=== PATIENT | female | born 1970 | race Caucasian/White ===

== ENCOUNTER 2024-07-21 11:27 | Observation (INO) ==
--- NOTE | 2024-07-21 11:50 | Emergency Department Note ---
HPI - General Adult General Chief complaint: Arrhythmia/Palpitations Stated complaint: dizziness, palpitations x 2 days Time Seen by Provider: 07/21/24 11:38 Source: patient Mode of arrival: walk-in Limitations: no limitations History of Present Illness HPI narrative: This is a 53 year old female patient that presents to the ER with c/o feeling her heart beat fast and feeling numbness and tingling all over and then feeling like she is going to pass out. Patient denies any chest pain, SOB, back pain, abdominal pain, fever, chills, or N/V. Patient is on Adderall Associated symptoms: Reports weakness Treatments prior to arrival: Reports none Related Data Allergies Allergy/AdvReac Type Severity Reaction Status Date / Time No Known Drug Allergies Allergy Verified 07/21/24 11:52 Review of Systems Status of ROS 10 or more systems reviewed and unremark able except as noted in history and below Constitutional Denies: fever, chills, change in weight, fatigue, malaise, night sweats or change in sleep pattern Eyes Denies: change in vision, blurry vision, blind spots, light sensitivity or eye discomfort Ears, nose, mouth, and throat Denies: throat pain, neck pain, throat swelling, difficulty swallowing, hoarseness, mouth pain or swelling of lips/tongue Cardiovascular Reports: palpitations; Denies: chest pain, edema, swelling of feet/ankles, lightheadedness, shortness of breath with exertion, shortness of breath when lying down or leg pain with exertion Respiratory Denies: shortness of breath, cough, wheezing, stridor, pain on inspiration, change in phlegm color or coughing up blood Gastrointestinal Denies: abdominal pain, nausea, vomiting, coffee grounds in vomit, heartburn, diarrhea or constipation Genitourinary Denies: painful urination, urinary frequency, urinary urgency, urinary incontinence, blood in urine or difficulty voiding Musculoskeletal Denies: back pain, neck pain, extremity pain, extremity swelling, joint pain, limited range of motion or joint swelling Integumentary/Breast Denies: rash, itching, redness, skin pain, skin tenderness, skin swelling, sores or new lesion Neurological Reports: dizziness and other (near syncope); Denies: headache, numbness in extremities, weakness in extremities, lack of coordination, vertigo, confusion, behavioral changes, slurred speech, difficulty communicating thoug hts, seizure-like activity or involuntary movements Psychiatric Denies: anxiety, mood swings, panic attacks, change in sleep pattern, hopelessness, loss of interest, irritability, difficulty concentrating, visual hallucinations, auditory hallucinations, tactile hallucinations, suicidal ideation or homicidal ideation Endocrine Denies: excessive urination, excessive thirst, fatigue, cold intolerance or excessive sweating Hematologic/Lymphatic Denies: easy bruising, easy bleeding or enlarged lymph nodes Allergic/Immunologic Denies: hives, throat swelling, tongue swelling, facial swelling, wheezing or itchy eyes PFSH PFS Surgical History (Updated 07/21/24 @ 11:58 by Michelle Andrade RN) Previous section Exam Constitutional: normal general appearance and no apparent distress Vital Signs - 24 hr 07/21/24 11:30 07/21/24 11:30 07/21/24 11:40 Temperature 97.9 F 97.9 F Pulse Rate 107 H 117 H 123 H Respiratory Rate 16 18 Blood Pressure 183/87 178/87 156/76 Pulse Oximetry 99 97 Oxygen Delivery Me thod Room Air Room Air 07/21/24 11:42 07/21/24 11:44 Temperature Pulse Rate 115 H 129 H Respiratory Rate Blood Pressure 163/94 141/79 Pulse Oximetry Oxygen Delivery Me thod HENMT: normocephalic, head/scalp atraumatic, hearing grossly normal bilaterally, EACs normal, nasal mucous membranes normal, external nose normal, oral mucous membranes normal and oropharynx normal Eyes: PERRL, EOMs intact bilaterally, conjunctivae normal and no scleral icterus Neck/C-Spine: visual inspection normal and trachea midline Lymph: no lymphadenopathy noted Chest: inspection of chest normal Respiratory: breath sounds equal bilaterally, normal respiratory effort, clear to auscultation bilaterally, no wheezes, no rales, no retractions, no use of accessory muscles and chest percussion normal Cardiovascular: heart rate abnormal (tachycardic), regular rhythm noted, no gallop, no rub, no murmur, no JVD, no clicks, peripheral pulses 2+ throughout, no bruits noted and no additional abnormal heart sounds Gastrointestinal: abdomen normal to inspection, abdomen soft to palpation, nontender to palpation, nontender to percussion, nondistended, normoactive bowel sounds, no hepatosplenomegaly, no masses, no pulsatile mass, no ascites and no hernia Genitourinary: no CVA tenderness Back/Pelvis: spine normal to inspection Extremities: normal to inspection, normal to palpation, no tenderness, full ROM, no joint enlargement and no deformity Neurology: manager hris II-XII intact, no movement abnormality noted, no focal motor deficit noted, no sensory deficits noted, speech normal, coordination normal, no pronator drift noted, no fasciculations noted and GCS normal Psychiatry: mental status grossly normal, oriented x3, thought process normal, cooperative, affect normal, psychomotor activity normal and memory normal Skin: skin color normal Course Course Hospital Course: 1237: spoke to Dr Fowler and she accepted patient to the medical floor. VSS, no s/s of acute distress noted Vital Signs Vital signs: Vital Signs Temperature 97.9 F 07/21/24 11:30 Pulse Rate 107 H 07/21/24 11:30 Respiratory Rate 16 07/21/24 11:30 Blood Pressure 183/87 07/21/24 11:30 Pulse Oximetry 99 07/21/24 11:30 Oxygen Delivery Method Room Air 07/21/24 11:30 Temperature 97.9 F 07/21/24 11:30 Pulse Rate 129 H 07/21/24 11:44 Respiratory Rate 16 07/21/24 11:30 Blood Pressure 141/79 07/21/24 11:44 Pulse Oximetry 99 07/21/24 11:30 Oxygen Delivery Method Room Air 07/21/24 11:30 Medical Decision Making Differential Diagnosis Differential Diagnosis: viral illness Medical Records Medical records reviewed: Yes I reviewed the patient's medical records Lab Data Lab results reviewed: Yes I reviewed the patient's lab results Labs: Lab Results 07/21/24 Range/Units 11:45 WBC 6.6 (4.3-9.3) K/uL RBC 5.0 (4.00-5.50) M/uL Hgb 14.0 (12.5-15.8) gm/dL Hct 41.7 (35.9-46.7) % MCV 83.8 (81.0-93.7) fl MCH 28.2 (27.6-32.2) pg MCHC 33.7 (33.1-35.3) g/dl RDW 14.3 H (11.4-14.2) % Plt Count 397 H (152-353) K/uL MPV 8.4 (6.9-10.8) fl Gran % 52.4 (47.8-71.3) % Lymph % (Auto) 38.1 (20.0-43.0) % [place] % (Auto) 8.0 (3.6-9.8) % Eos % (Auto) 0.8 (0.4-2.8) % Baso % (Auto) 0.7 (0.1-0.85) Lymph # (Auto) 2.5 (1.1-3.1) [place] # (Auto) 0.5 L (1.1-3.1) Eos # (Auto) 0.1 (0.0-0.2) Baso # (Auto) 0.0 (0.0-0.1) Absolute Gran (auto) 3.5 (2.3-6.0) D-Dimer <100 L (100-600) ng/mL Sodium 135 L (136-145) mmol/L Potassium 2.9 L (3.6-5.2) mmol/L Chloride 99.0 (98-107) mmol/L Carbon Dioxide 26 (21-32) mmol/L Anion Gap 10.0 (4-14) mEq/L BUN 8 (7-18) mg/dL Creatinine 0.9 (0.6-1.3) mg/dL Estimated GFR 77.4 (>59.9) Glucose 94 (70-110) mg/dL Calcium 8.4 L (8.5-10.1) mg/dL Total Bilirubin 0.40 (0.0-1.0) mg/dL AST 9 L (15-37) U/L ALT 17 L (30-65) U/L Alkaline Phosphatase 82 (50-136) U/L Total Creatine Kinase 60 (26-192) U/L Troponin I High Sens 12.30 (4.0-60.4) ng/L Total Protein 7.8 (6.4-8.2) g/dL Albumin 4.0 (3.4-5.0) g/dL Imaging Data CT scan - head: Attestation: I have reviewed the pertinent imaging results. ECG Data Attestation: I have reviewed the pertinent ECG results. Discharge Plan Discharge Patient Disposition: Admitted As Observation Condition: Stable Clinical Impression: Palpitations, Acute hypokalemia, Near syncope, Orthostatic hypotension Time of Disposition: 12:39
[2024-07-21 11:53] LABS: Basophils%(Percent) Auto 0.7 (0.1-0.85); Eosinophils#(Absolute)Auto 0.1 (0.0-0.2); Eosinophils%(Percent) Auto 0.8 % (0.4-2.8); Granulocytes % - Auto 52.4 % (47.8-71.3); Granulocytes#(Absolute)- Auto 3.5 (2.3-6.0); Hematocrit 41.7 % (35.9-46.7); Mean Corpuscular Volume 83.8 fl (81.0-93.7); Monocytes #(Absolute)- Auto 0.5 (1.1-3.1); Platelet Count 397 K/uL (152-353); White Blood Count 6.6 K/uL (4.3-9.3)
[2024-07-21] MEDS: 0.9 % SODIUM CHLORIDE 1000 ML 1,000 ML IV STA (12:00)
[2024-07-21] MEDS ORDERED: 0.9 % SODIUM CHLORIDE 1000 ML 1,000 ML IV ONE (12:02)
[2024-07-21 12:04] LABS: Potassium 2.9 mmol/L (3.6-5.2)
[2024-07-21] MEDS ORDERED: POTASSIUM CHLORIDE IN WATER 20 MEQ/200 ML PIGGYBACK IV ONE (12:38)
[2024-07-21] MEDS ORDERED: POTASSIUM CHLORIDE 20 MEQ TAB.ER.PRT PO ONE (12:39)
[2024-07-21] MEDS: POTASSIUM CHLORIDE IN WATER 10 MEQ/100 ML PIGGYBACK IV ONE ×2 (12:40→14:05)
[2024-07-21] MEDS: POTASSIUM CHLORIDE 20 MEQ TAB.ER.PRT PO ONE (12:40)
[2024-07-21] MEDS ORDERED: MAGNESIUM, ALUMINUM HYDROXIDE 30 ML ORAL.SUSP PO PRN (14:09)
[2024-07-21] MEDS ORDERED: bisacodyL 10 MG SUPP.RECT PR PRN (14:09)
--- NOTE | 2024-07-21 15:48 | History & Physical Report ---
H&P: HPI History of Present Illness Chief complaint: Near Syncope, hypokalemia, orthostatic hypotension Narrative: This is a 53 year old female patient that presents to the ER with c/o feeling her heart beat fast and feeling numbness and tingling all over which resolved in 20 minutes and left arm still heavy and then feeling like she is going to pass out and . Patient denies any chest pain, SOB, back pain, abdominal pain, fever, chills, or N/V. Patient is on Adderall. Review of Systems Status of ROS 10 or more systems reviewed and unremark able except as noted in history and below Constitutional Denies: fever, chills, change in weight, fatigue, malaise, night sweats or change in sleep pattern Eyes Denies: change in vision, blurry vision, blind spots, light sensitivity or eye discomfort Ears, nose, mouth, and throat Denies: throat pain, neck pain, throat swelling, difficulty swallowing, hoarseness, mouth pain, swelling of lips/tongue or vertigo Cardiovascular Reports: palpitations; Denies: chest pain, edema, swelling of feet/ankles, lightheadedness, shortness of breath with exertion, shortness of breath when lying down or leg pain with exertion Respiratory Denies: shortness of breath, cough, wheezing, stridor, pain on inspiration, change in phlegm color or coughing up blood Gastrointestinal Denies: abdominal pain, nausea, vomiting, coffee grounds in vomit, heartburn, diarrhea, constipation or difficulty swallowing Genitourinary Denies: painful urination, urinary frequency, urinary urgency, urinary incontinence, blood in urine or difficulty voiding Musculoskeletal Denies: back pain, neck pain, extremity pain, extremity swelling, joint pain, limited range of motion or joint swelling Integumentary/Breast Denies: rash, itching, redness, skin pain, skin tenderness, skin swelling, sores or new lesion Neurological Reports: dizziness and other (near syncope); Denies: headache, numbness in extremities, weakness in extremities, lack of coordination, vertigo, confusion, behavioral changes, slurred speech, difficulty communicating thoughts, seizure-like activity or involuntary movements Psychiatric Denies: anxiety, mood swings, panic attacks, change in sleep pattern, hopelessness, loss of interest, irritability, difficulty concentrating, visual hallucinations, auditory hallucinations, tactile hallucinations, suicidal ideation or homicidal ideation Endocrine Denies: excessive urination, excessive thirst, fatigue, cold intolerance or excessive sweating Hematologic/Lymphatic Denies: easy bruising, easy bleeding or enlarged lymph nodes Allergic/Immunologic Denies: hives, throat swelling, tongue swelling, facial swelling, wheezing or itchy eyes [facility] Medical History (Updated 07/22/24 @ 09:18 by Giuliana Fowler DO) ADD (attention deficit disorder) without hyperactivity Surgical History Previous section Social History Problems where you live: no known problems Highest level of school completed/degree received: College Do you think of yourself as: straight/heterosexual Gender Identity: female Meds Home Medications and Allergies Allergies Allergy/AdvReac Type Severity Reaction Status Date / Time No Known Drug Allergies Allergy Verified 07/21/24 11:52 Exam Exam: Patient in jara's position. Constitutional: normal general appearance and no apparent distress Vital Signs - 24 hr 07/21/24 11:30 07/21/24 11:40 07/21/24 11:42 Temperature 97.9 F Pulse Rate 107 H 123 H 115 H Respiratory Rate 16 Blood Pressure 183/87 156/76 163/94 Pulse Oximetry [facility] 07/21/24 11:44 07/21/24 11:45 07/21/24 12:00 Temperature 97.9 F Pulse Rate 129 H 117 H 101 H Respiratory Rate 16 17 Blood Pressure 141/79 178/87 147/71 Pulse Oximetry 99 98 [facility] Room Air 07/21/24 12:30 07/21/24 13:30 07/21/24 14:08 Temperature 97.9 F Pulse Rate 88 88 81 Respiratory Rate 16 15 15 Blood Pressure 129/64 139/72 124/69 Pulse Oximetry 98 96 96 [facility] Room Air HENMT: normocephalic, head/scalp atraumatic, hearing grossly normal bilaterally, EACs normal, nasal mucous membranes normal, external nose normal, oral mucous membranes normal and oropharynx normal Eyes: PERRL, EOMs intact bilaterally, conjunctivae normal and no scleral ict erus Neck/C-Spine: visual inspection normal and trachea midline Lymph: no lymphadenopathy noted Chest: inspection of chest normal Respiratory: breath sounds equal bilaterally, normal respiratory effort, clear to auscultation bilaterally, no wheezes, no rales, no retractions, no use of accessory muscles and chest percussion normal Cardiovascular: heart rate abnormal (tachycardic), regular rhythm noted, no gallop, no rub, no murmur, no JVD, no clicks, peripheral pulses 2+ throughout, no bruits noted and no additional abnormal heart sounds Gastrointestinal: abdomen normal to inspection, abdomen soft to palpation, no ntender to palpation, nontender to percussion, nondistended, normoactive bowel sounds, no hepatosplenomegaly, no masses, no pulsatile mass, no ascites and no hernia Genitourinary: no CVA tenderness Back/Pelvis: spine normal to inspection Extremities: normal to inspection, normal to palpation, no tenderness, full ROM, no joint enlargement and no deformity Neurology: citrus fruit colorer II-XII intact, no movement abnormality noted, no focal motor deficit noted, no sensory deficits noted, speech normal, coordination normal, no pronator drift noted, no fasciculations noted and GCS normal Psychiatry: mental status grossly normal, oriented x3, thought process normal, cooperative, affect normal, psychomotor activity normal and memory normal Skin: skin color normal Assessment and Plan Assessment and Plan (1) Hypokalemia: Code(s): E87.6 - Hypokalemia (2) Near syncope: Code(s): R55 - Syncope and collapse (3) Orthostatic hypotension: Code(s): I95.1 - Orthostatic hypotension (4) Palpitations: Code(s): R00.2 - Palpitations (5) ADD (attention deficit disorder) without hyperactivity: Code(s): F98.8 - Other specified behavioral and emotional disorders with onset usually occurring in childhood and adolescence Plan Sodium Chloride 1,000 mls ! 125 mls/hr IV CONT Pantoprazole Sodium 40 mg IVP DAILY Diltiazem Hcl 30 mg PO Q12H Enoxaparin Sodium 40 mg SUBQ DAILY replace electrolytes per protocol cardiac monitoring EKG in the am Cardizem 30 mg po bid Acetaminophen 500 mg PO Q6H PRN Magnesium Hydroxide 30 ml PO DAILY PRN Bisacodyl [address] DAILY PRN Results Labs Labs: CBC 07/21/24 Range/Units 11:45 WBC 6.6 (4.3-9.3) K/uL RBC 5.0 (4.00-5.50) M/uL Hgb 14.0 (12.5-15.8) gm/dL Hct 41.7 (35.9-46.7) % Plt Count 397 H (152-353) K/uL Gran % 52.4 (47.8-71.3) % Lymph % (Auto) 38.1 (20.0-43.0) % [place] % (Auto) 8.0 (3.6-9.8) % Eos % (Auto) 0.8 (0.4-2.8) % Baso % (Auto) 0.7 (0.1-0.85) Lymph # (Auto) 2.5 (1.1-3.1) [place] # (Auto) 0.5 L (1.1-3.1) Eos # (Auto) 0.1 (0.0-0.2) Baso # (Auto) 0.0 (0.0-0.1) Absolute Gran (auto) 3.5 (2.3-6.0) CMP 07/21/24 11:45 Sodium 135 L Potassium 2.9 L Chloride 99.0 Carbon Dioxide 26 BUN 8 Creatinine 0.9 Glucose 94 Calcium 8.4 L Cardiac Enzymes 07/21/24 11:45 Total Creatine Kinase 60 Liver Function 07/21/24 Range/Units 11:45 Total Bilirubin 0.40 (0.0-1.0) mg/dL AST 9 L (15-37) U/L ALT 17 L (30-65) U/L Alkaline Phosphatase 82 (50-136) U/L Albumin 4.0 (3.4-5.0) g/dL Urinalysis negative except few bacteria Pulse Oximetry Attestation: I have reviewed the pertinent pulse oximetry results. ECG Attestation: I have reviewed the pertinent ECG results. Prior ECG tracings: available for review Imaging Imaging ordered: Chest x-ray and CT scan - head Radiologist's impression: XR CHEST 1V Date of Service: 07/21/24 HISTORY: PALPITATIONSPALPITATIONS; COMPARISON: None. FINDINGS: The trachea is midline. The cardiac silhouette is unremarkable. The lungs are clear without focal infiltrate or effusion. The bony thorax is unremarkable. IMPRESSION: No acute cardiopulmonary disease. CT HEAD/BRAIN WO CON Date of Service: 07/21/24 HISTORY: near syncopenear syncope; COMPARISON: None. TECHNIQUE: Contiguous noncontrast axial CT images of the brain. Images are reviewed in the axial imaging plane with reformatted sagittal and coronal images.The above CT scan was done with automated exposure control and the mA and kV was adjusted to obtain quality images according to patient size. FINDINGS: No evidence of acute intracranial hemorrhage, mass effect, or midline shift. Normal nunez-white matter differentiation. Ventricles normal size and shape. Calvarium is intact. IMPRESSION: No acute intracranial process seen.
[2024-07-21] MEDS: 0.9 % SODIUM CHLORIDE 1000 ML 1,000 ML IV SCH (16:40)
[2024-07-21] MEDS: dilTIAZem HCL 30 MG TABLET PO SCH (16:44)
[2024-07-21] MEDS: PANTOPRAZOLE SODIUM 40 MG VIAL IVP SCH (16:44)
[2024-07-21 19:43] LABS: Potassium 4.1 mmol/L (3.6-5.2)
[2024-07-21 19:49] LABS: Urine Appearance CLEAR (CLEAR); Urine Blood 1+ (NEG - TRACE); Urine Color YELLOW (STRAW/YELL.); Urine Urobilinogen Normal (NORMAL)
[2024-07-21 20:00] LABS: Urine Amorphous Sediment Negative (Negative); Urine Yeast Negative (Negative)
[2024-07-21] MEDS: ACETAMINOPHEN 500 MG TABLET PO PRN (20:00)
[2024-07-21 20:03] LABS: Amphetamine Screen Urine POS. (NEGATIVE); Cannabinoid Screen Urine NEG. (NEGATIVE); Cocaine Screen Urine NEG. (NEGATIVE); Methadone Screen Urine NEG. (NEGATIVE); Opiate Screen Urine NEG. (NEGATIVE)
[2024-07-22 06:56] LABS: Basophils #(Absolute) Auto 0.1 (0.0-0.1); Basophils%(Percent) Auto 0.9 (0.1-0.85); Eosinophils#(Absolute)Auto 0.1 (0.0-0.2); Eosinophils%(Percent) Auto 2.2 % (0.4-2.8); Granulocytes % - Auto 43.9 % (47.8-71.3); Granulocytes#(Absolute)- Auto 2.4 (2.3-6.0); Hematocrit 35.5 % (35.9-46.7); Mean Corpuscular Volume 84.6 fl (81.0-93.7); Monocytes #(Absolute)- Auto 0.5 (1.1-3.1); Monocytes %(Percent)- Auto 8.2 % (3.6-9.8); Platelet Count 320 K/uL (152-353); White Blood Count 5.5 K/uL (4.3-9.3)
[2024-07-22 08:16] VITALS: BP 107/52; PULSE 77; RESP 19; TEMP 97.6
[2024-07-22] MEDS: ENOXAPARIN SODIUM 40 MG/0.4 ML SYRINGE SUBQ SCH (09:39)
[2024-07-22 09:54] LABS: Specific Gravity Urine 1.015 (1.001-1.035); Urine Appearance CLEAR (CLEAR); Urine Blood NEGATIVE (NEG - TRACE); Urine Color YELLOW (STRAW/YELL.); Urine Urobilinogen Normal (NORMAL)
--- NOTE | 2024-07-22 17:09 | Discharge Summary ---
DS: Providers Provider Date of admission: 07/21/24 12:41 Primary care physician: Giuliana Fowler DO Admitting clinician: Gilma Castillo Attending physician on admission: Giuliana Fowler Attending physician on discharge: Giuliana Fowler Discharging clinician: Giuliana Fowler Anticipated date of discharge: 07/22/24 DS: Diagnosis Discharge Diagnosis (1) Hypokalemia: (2) Near syncope: (3) Orthostatic hypotension: (4) Palpitations: (5) ADD (attention deficit disorder) without hyperactivity: Plan Sodium Chloride 1,000 mls @ 125 mls/hr IV CONT Pantoprazole Sodium 40 mg IVP DAILY Diltiazem Hcl 30 mg PO Q12H Enoxaparin Sodium 40 mg SUBQ DAILY Acetaminophen 500 mg PO Q6H PRN Magnesium Hydroxide 30 ml PO DAILY PRN Bisacodul 10 mg HI DAILY PRN Discharge home for self care. DS: Summary Hospital Course Hospital Course: This is a 53 year old female patient that presents to the ER with c/o feeling her heart beat fast and feeling numbness and tingling all over which resolved in 20 minutes and left arm still heavy and then feeling like she is going to pass out and . Patient denies any chest pain, SOB, back pain, abdominal pain, fever, chills, or N/V. Patient is on Adderall. Patient chief complaint this morning of burning sensation when peeing secondary to UTI. Patient symptoms have improved. Cardizem added for rate control and improved BP. Educated patient on increasing water intake and protein intake. Patient is recommended to decrease Adderall usage. Patient is to follow up with PCP in 5-7 days of discharge. Status at Discharge Overall status at discharge: patient is back to baseline Time Spent with Patient Time attestation: Total time spent providing and/or coordinating discharge services: Exam Exam: Patient in low jara's position. Constitutional: normal general appearance, no apparent distress, average body habitus, no limitations and alert Vital Signs - 24 hr 07/21/24 11:30 07/21/24 11:40 07/21/24 11:42 Temperature 97.9 F Pulse Rate 107 H 123 H 115 H Pulse Rate [Bilate ral] Respiratory Rate 16 Blood Pressure 183/87 156/76 163/94 Blood Pressure [Le ft Arm] Pulse Oximetry 99 Oxygen Delivery Me thod Room Air 07/21/24 11:44 07/21/24 11:45 07/21/24 12:00 Temperature 97.9 F Pulse Rate 129 H 117 H 101 H Pulse Rate [Bilate ral] Respiratory Rate 16 17 Blood Pressure 141/79 178/87 147/71 Blood Pressure [Le ft Arm] Pulse Oximetry 99 98 Oxygen Delivery [facility] Room Air Room Air 07/21/24 12:30 07/21/24 13:30 07/21/24 14:08 Temperature 97.9 F Pulse Rate 88 88 81 Pulse Rate [Bilate ral] Respiratory Rate 16 15 15 Blood Pressure 129/64 139/72 124/69 Blood Pressure [Le ft Arm] Pulse Oximetry 98 96 96 Oxygen Delivery [facility] Room Air Room Air 07/21/24 14:20 07/21/24 16:20 07/21/24 16:44 Temperature 97.9 F Pulse Rate 79 Pulse Rate [Bilate ral] Respiratory Rate 19 Blood Pressure 136/67 Blood Pressure [Le ft Arm] 144/68 Pulse Oximetry 100 Oxygen Delivery [facility] Room Air Room Air 07/21/24 20:00 07/21/24 23:42 07/22/24 03:03 Temperature 97.9 F 97.7 F Pulse Rate 80 Pulse Rate [Bilate ral] 71 84 Respiratory Rate 17 16 Blood Pressure 119/61 Blood Pressure [Le ft Arm] 139/70 132/63 Pulse Oximetry 100 95 Oxygen Delivery [facility] Room Air Room Air 07/22/24 03:41 07/22/24 08:00 Temperature 97.9 F 97.6 F Pulse Rate Pulse Rate [Bilate ral] 79 77 Respiratory Rate 18 19 Blood Pressure Blood Pressure [Le ft Arm] 119/61 107/52 Pulse Oximetry 99 97 Oxygen Delivery [facility] Room Air Room Air HENMT: normocephalic, head/scalp atraumatic, hearing grossly normal bilaterally, EACs normal, nasal mucous membranes normal, external nose normal, oral mucous membranes normal and oropharynx normal Eyes: PERRL, EOMs intact bilaterally, conjunctivae normal and no scleral icterus Neck/C-Spine: visual inspection normal and trachea midline Lymph: no lymphadenopathy noted Chest: inspection of chest normal Respiratory: breath sounds equal bilaterally, normal respiratory effort, clear to auscultation bilaterally, no wheezes, no rales, no retractions, no use of accessory muscles and chest percussion normal Cardiovascular: normal heart rate noted, regular rhythm noted, no gallop, no rub, no murmur, no JVD, no clicks, peripheral pulses 2+ throughout, no bruits noted and no additional abnormal heart sounds Gastrointestinal: abdomen normal to inspection, abdomen soft to palpation, nontender to palpation, nontender to percussion, nondistended, normoactive bowel sounds, no hepatosplenomegaly, no masses, no pulsatile mass, no ascites and no hernia Genitourinary: no CVA tenderness Back/Pelvis: spine normal to inspection Extremities: normal to inspection, normal to palpation, no tenderness, full ROM, no joint enlargement and no deformity Neurology: stencil cutter machine II-XII intact, no movement abnormality noted, no focal motor deficit noted, no sensory deficits noted, speech normal, coordination normal, no pronator drift noted, no fasciculations noted and GCS normal Psychiatry: mental status grossly normal, oriented x3, thought process normal, cooperative, affect normal, psychomotor activity normal and memory normal Skin: skin color normal and skin turgor normal DS: Data Data Completed and Pending Labs on day of discharge: Labs from last 24 hours 07/22/24 07/22/24 07/21/24 09:45 06:27 20:30 WBC 5.5 RBC 4.2 Hgb 11.9 L Hct 35.5 L MCV 84.6 MCH 28.5 MCHC 33.7 RDW 14.5 H Plt Count 320 MPV 8.8 Gran % 43.9 L Lymph % (Auto) 44.8 H [place] % (Auto) 8.2 Eos % (Auto) 2.2 Baso % (Auto) 0.9 H Lymph # (Auto) 2.5 [place] # (Auto) 0.5 L Eos # (Auto) 0.1 Baso # (Auto) 0.1 Absolute Gran (auto) 2.4 D-Dimer Sodium 139 Potassium 4.0 Chloride 108.0 H Carbon Dioxide 28 Anion Gap 3.0 L BUN 5 L Creatinine 0.6 Estimated GFR 108.6 Glucose 88 Calcium 7.7 L Phosphorus 2.7 Magnesium 1.7 L Total Bilirubin 0.32 AST 15 ALT 14 L Alkaline Phosphatase 69 Total Creatine Kinase Troponin I High Sens 7.20 Total Protein 6.0 L Albumin 2.9 L Triglycerides 81 Cholesterol 116 LDL Cholesterol 68.0 VLDL Cholesterol, Calc 16 HDL Cholesterol 41 LDL/HDL Ratio 1.7 Cholesterol/HDL Ratio 2 TSH 1.33 Urine Color Yellow Urine Appearance Clear Ur Specific [place] 1.015 Urine Protein Negative Urine Glucose (UA) Normal Urine Ketones Negative Urine Occult Blood Negative Urine Nitrite Negative Urine Bilirubin Negative Urine Urobilinogen Normal Ur Leukocyte Esterase Negative Urine RBC Urine WBC Ur Epithelial Cells Amorphous Sediment Urine Bacteria Urine Mucus Urine Trichomonas Urine Yeast Fluid pH 6.0 Urine Opiates Screen Urine Methadone Screen Barbiturate Screen Ur Phencyclidine Scrn Amphetamines Screen U Benzodiazepines Scrn Urine Cocaine Screen U Marijuana (THC) Screen 07/21/24 07/21/24 07/21/24 19:25 19:20 14:40 WBC RBC Hgb Hct MCV MCH MCHC RDW Plt Count MPV Gran % Lymph % (Auto) [place] % (Auto) Eos % (Auto) Baso % (Auto) Lymph # (Auto) [place] # (Auto) Eos # (Auto) Baso # (Auto) Absolute Gran (auto) D-Dimer Sodium 139 Potassium 4.1 Chloride 106.0 Carbon Dioxide 30 Anion Gap 3.0 L BUN 6 L Creatinine 0.7 Estimated GFR 104.7 Glucose 76 Calcium 7.9 L Phosphorus 2.6 Magnesium 1.7 L Total Bilirubin AST ALT Alkaline Phosphatase Total Creatine Kinase Troponin I High Sens 7.00 Total Protein Albumin Triglycerides Cholesterol LDL Cholesterol VLDL Cholesterol, Calc HDL Cholesterol LDL/HDL Ratio Cholesterol/HDL Ratio TSH Urine Color Yellow Urine Appearance Clear Ur Specific [place] 1.010 Urine Protein Negative Urine Glucose (UA) Normal Urine Ketones Small Urine Occult Blood 1+ Urine Nitrite Negative Urine Bilirubin Negative Urine Urobilinogen Normal Ur Leukocyte Esterase Negative Urine RBC Negative Urine WBC Negative Ur Epithelial Cells Few Amorphous Sediment Negative Urine Bacteria Trace Urine Mucus Negative Urine Trichomonas Negative Urine Yeast Negative Fluid pH 5.0 Urine Opiates Screen Neg. Urine Methadone Screen Neg. Barbiturate Screen Neg. Ur Phencyclidine Scrn Neg. Amphetamines Screen Pos. U Benzodiazepines Scrn Neg. Urine Cocaine Screen Neg. U Marijuana (THC) Screen Neg. 07/21/24 11:45 WBC 6.6 RBC 5.0 Hgb 14.0 Hct 41.7 MCV 83.8 MCH 28.2 MCHC 33.7 RDW 14.3 H Plt Count 397 H MPV 8.4 Gran % 52.4 Lymph % (Auto) 38.1 [place] % (Auto) 8.0 Eos % (Auto) 0.8 Baso % (Auto) 0.7 Lymph # (Auto) 2.5 [place] # (Auto) 0.5 L Eos # (Auto) 0.1 Baso # (Auto) 0.0 Absolute Gran (auto) 3.5 D-Dimer <100 L Sodium 135 L Potassium 2.9 L Chloride 99.0 Carbon Dioxide 26 Anion Gap 10.0 BUN 8 Creatinine 0.9 Estimated GFR 77.4 Glucose 94 Calcium 8.4 L Phosphorus Magnesium Total Bilirubin 0.40 AST 9 L ALT 17 L Alkaline Phosphatase 82 Total Creatine Kinase 60 Troponin I High Sens 12.30 Total Protein 7.8 Albumin 4.0 Triglycerides Cholesterol LDL Cholesterol VLDL Cholesterol, Calc HDL Cholesterol LDL/HDL Ratio Cholesterol/HDL Ratio TSH Urine Color Urine Appearance Ur Specific [place] Urine Protein Urine Glucose (UA) Urine Ketones Urine Occult Blood Urine Nitrite Urine Bilirubin Urine Urobilinogen Ur Leukocyte Esterase Urine RBC Urine WBC Ur Epithelial Cells Amorphous Sediment Urine Bacteria Urine Mucus Urine Trichomonas Urine Yeast Fluid pH Urine Opiates Screen Urine Methadone Screen Barbiturate Screen Ur Phencyclidine Scrn Amphetamines Screen U Benzodiazepines Scrn Urine Cocaine Screen U Marijuana (THC) Screen Imaging Chest x-ray: Radiologist's impression: XR CHEST 1V Date of Service: 07/21/24 HISTORY: PALPITATIONSPALPITATIONS; COMPARISON: None. FINDINGS: The trachea is midline. The cardiac silhouette is unremarkable. The lungs are clear without focal infiltrate or effusion. The bony thorax is unremarkable. IMPRESSION: No acute cardiopulmonary disease. CT scan - head: Radiologist's impression: CT HEAD/BRAIN WO CON Date of Service: 07/21/24 HISTORY: near syncopenear syncope; COMPARISON: None. TECHNIQUE: Contiguous noncontrast axial CT images of the brain. Images are reviewed in the axial imaging plane with reformatted sagittal and coronal images.The above CT scan was done with automated exposure control and the mA and kV was adjusted to obtain quality images according to patient size. FINDINGS: No evidence of acute intracranial hemorrhage, mass effect, or midline shift. Normal nunez-white matter differentiation. Ventricles normal size and shape. Calvarium is intact. IMPRESSION: No acute intracranial process seen. Discharge Plan Discharge Disposition: Home, Self-Care Condition: Improved Discharge Medications: New diltiazem HCl [Cardizem] 30 mg tablet 30 mg PO Q8H Qty: 60 0RF Discharge Orders: Discharge Order (Routine); Ordered 07/22/24 Ordered By: Giuliana Fowler Activity: increase activity as tolerated Diet: advance to your usual diet Diet Detail: improve water intake and protein Interventions: Discharge Assessment Last Done: 07/22/24 11:02 MED/SURG & ICU Observation Charge Sheet Last Done: 07/22/24 11:05 Patient Instructions: Dizziness (ED) Activity Restrictions/Additional Instructions: improve water and protein intake follow up pcp 1 week BP and Pulse journal bp 24 hour monitor nuclear stress test as out patient carotids as an outpatient screening colonoscopy, aortic aneurysm screening, mammogram and dexascan as an outpatient as well STOP adderal Forms: Portal/Health Info Access Inst Follow-Ups: Giuliana Fowler DO [Primary Care Provider] - (PATIENT WILL MAKE HER OWN FOLLOW UP APPT WITH [facility]S OFFICE) Discharge Date/Time: 07/22/24 11:08
--- NOTE | 2024-07-29 14:50 | Echocardiogram Report ---
Study Quality: Good Indications / History: Supraventricular tachycardia. Abnormal electrocardiogram [ECG] [EKG]. Diagnosis/CPT Code(s): TTE - 2D w/ or w/o M-Mode Complete (75124). Echo Dimensions Ao Root Lisa (M-Mode): 3 cm LA Dimen (2D): 3.4 cm IVS(D) (M-Mode): 0.95 cm IVS(D) (2D): 0.9 cm LVPW(D) (M-Mode): 0.83 cm LVPW(D) (2D): 1 cm LV(D) (M-Mode): 4.39 cm LV(D) (2D): 4.7 cm LV(S) (M-Mode): 2.73 cm LV(S) (2D): 2.9 cm Asc Ao Lisa (2D): 2.2 cm RV(D (2D): 2.1 cm LVOT (2D): 1.7 cm EF (M-Mode): 68 % EF (2D): 69 % RVSP (Doppler): 40 mmHg Doppler ------- * Aortic Valve LVOT Peak Gradient: 2 mmHg. LVOT Peak Velocity: 0.75 m/s. LVOT Mean Grad: 1 mmHg. LVOT VTI: 18.2 cm. LVOT/AV VTI: 0.55. AV Peak Velocity: 1.7 m/s. AV Peak Gradient: 12 mmHg. AV Mean Gradient: 6 mmHg. AV VTI: 33.3 cm. * Mitral Valve MV Area (PHT): 3.55 cm2. MV Peak E Edmundo: 0.91 m/s. MV Peak A Edmundo: 0.88 m/s. E/A: 1. MV PHT: 62 ms. MV Dec T: 211 ms. * Diastolic Functions / TDI E/e' medial: 11. E/e' lateral: 11.5. E/e' average: 11.25. Peak e' medial edmundo: 8.27 cm/s. Peak e' lateral edmundo: 7.94 cm/s. * Tricuspid Valve RVSP: 40 mmHg. RA Pressure: 10 mmHg. TR Peak Grad: 30 mmHg. TV Regurg.Peak Edmundo: 2.74 m/s. Findings -------- Left Ventricle LV chamber and wall dimensions are normal. There is normal LV systolic function. There are no wall motion abnormalities. The estimated LV ejection fraction is normal at 65-70%. Right Ventricle There is normal right ventricular size, wall dimension, and systolic function. Left Atrium LA chamber size is normal. LA diameter is 3.4 cm. Right Atrium RA chamber size is normal. Aortic Valve The aortic valve is structurally normal. There is a trileaflet aortic valve. There is no aortic valve stenosis or regurgitation. Mitral Valve There is mild systolic bowing of the mitral valve leaflet. The mitral valve leaflet is mildly thickened. There is trace mitral regurgitation. There is no mitral stenosis. Tricuspid Valve Tricuspid valve is structurally normal. There is trace tricuspid regurgitation. Estimated RVSP systolic pressure is 40 mmHg. Pulmonary Valve There is normal pulmonic valve structure and function. There is no pulmonic regurgitation. Pericardium The pericardium is normal. There is no pericardial effusion present. Aorta The size of the visualized portion of aortic root is within normal limits. Aortic Root diameter (M-mode) is 3 cm. Thrombus/Mass There is no intracardiac mass or thrombus identified. Impressions * M-mode, 2-D echocardiogram is performed with cardiac doppler including, spectral doppler (continuous wave and pulse wave) and color flow. There is no evidence of intracavitary mass or thrombus. Right heart pressure is 40 mmHg. * Normal left ventricular size, wall thickness and systolic function. * No left ventricular wall motion abnormalities. * LVEF (normal): 65-70%. * Normal right ventricular size and function. * Trivial mitral regurgitation. * There is mild systolic bowing of the mitral valve leaflet. * Trivial tricuspid regurgitation. * The size of the visualized portion of aortic root is within normal limits. * No pericardial effusion. * There are no prior studies available for comparison. Electronically signed by: Tejas Rosales MD 07/29/2024 2:49 PM [facility]
== END 2024-07-22 11:08 | disposition home or self-care (01) ==
LOC: MS 11:27 → ED 11:27 → MS 13:15
PROVIDERS: ADMIT Family Medicine; ATTEND Family Medicine
DX: Z79.899 Other long term (current) drug therapy; I08.1 Rheumatic disorders of both mitral and tricuspid valves; R00.2 Palpitations; E87.6 Hypokalemia; I95.1 Orthostatic hypotension; R42 Dizziness and giddiness; F98.8 Other specified behavioral and emotional disorders with onset usually occurring in childhood and adolescence